=== PATIENT | male | born 2000 | race African-American/Black ===

== ENCOUNTER 2020-02-28 21:56 | Emergency (ER) | payer OTHER ==
[~2020-02-28] VITALS: Ht 165.1 cm; Wt 59.9 kg
[2020-02-28 22:29] LABS: ABSOLUTE BASOPHILS 0.1 thou/uL (0.0-0.2); ABSOLUTE EOSINOPHILS 1.1 thou/uL (0.0-0.7); ABSOLUTE LYMPHOCYTES 3.6 thou/uL (0.8-5.3); ABSOLUTE NEUTROPHILS 9.2 thou/uL (1.6-8.1); BASOPHILS 0.6 %; EOSINOPHILS 7.1 %; HEMATOCRIT 43.9 % (42.0-52.0); HEMOGLOBIN 14.5 gm/dL (14.0-18.0); LYMPHOCYTES 24.3 %; MCH 28.6 pg (26.0-34.0); MCV 86.9 fL (80.0-100.0); MONOCYTES 6.9 %; MPV 7.4 fl. (7.2-11.1); NUCLEATED RBCS 0 /100WBC; PLATELET COUNT* 352 thou/uL (150-400); POLYS 61.1 %; RBC 5.05 mil/uL (4.50-6.00)
[2020-02-28 22:40] LABS: CALCIUM 9.5 mg/dL (8.5-10.1); POTASSIUM 3.4 mmol/L (3.5-5.1)
[2020-02-28 22:50] LABS: ALBUMIN 3.9 g/dL (3.4-5.0); MAGNESIUM 2.2 mg/dL (1.8-2.4); TOTAL BILIRUBIN 0.4 mg/dL (<0.1-1.0); TOTAL PROTEIN 8.9 g/dL (6.4-8.2)
[2020-02-29] MEDS ORDERED: ZPAK PO (01:46)
[2020-02-29] MEDS ORDERED: NORCO 5-325 TA1 EAC2 PO (01:46)
[2020-02-29 02:43] VITALS: BP 123/61
--- NOTE | 2020-02-29 17:47 | EKG ---
[place] [address] ELECTROCARDIOGRAM REPORT Name: LINDA BOOTH Room: [facility]#: [id number] Admission: 02/28/20 Attend Phys: Discharge: 02/29/20 Date of : [birth year] Date of Service: 02/28/202240 Report #: [id number] THIS REPORT FOR: //name// [facility] ED Test Date: 2020-02-28 Test Time: 22:41:20 Pat Name: LINDA BOOTH Department: Room: Gender: [employer]: [facility] : 2000 Requested By: Dru Mccarty Order Number: [id number] MD: Conner Pickering Measurements Intervals [place] Rate: 102 P: 47 NV: 136 QRS: 3 QRSD: 88 T: 30 QT: 326 QTc: 425 Interpretive Statements Sinus tachycardia No previous ECG available for comparison Electronically Signed On 02-29-2020 17:46:58 CDT by Conner Pickering [email or web address] <ELECTRONICALLY SIGNED> By: Conner Pickering MD, [facility] 02/29/20 [id number] Conner Pikcering MD, FACC /EPI
== END 2020-02-29 02:44 | disposition home or self-care (01) ==
LOC: M.ERS 21:56
PROVIDERS: Emergency Medicine Emergency Medical Services
DX: J90 Pleural effusion, not elsewhere classified (principal)